=== PATIENT | male | born 1940 | race Caucasian/White ===

== ENCOUNTER 2018-05-19 23:08 | Inpatient (IN) | payer MEDICARE ==
[~2018-05-19] VITALS: Ht 175.3 cm; Wt 84.9 kg
[2018-05-19 23:00] VITALS: BP 122/69
[2018-05-20] MEDS: HYDROCODONE/ACETAMINOPHEN 5/325MG TABLET PO PRN (01:10)
[2018-05-20] MEDS ORDERED: WARF2.5T47 PO (01:42)
[2018-05-20] MEDS ORDERED: IPRA3AMP9 HHN (01:42)
[2018-05-20] MEDS ORDERED: HYDR-4001 PO (01:42)
[2018-05-20] MEDS ORDERED: ACET-2853 PO (01:42)
[2018-05-20] MEDS ORDERED: WARF5TAB76 PO (01:42)
[2018-05-20] MEDS ORDERED: METO-539 PO (01:42)
[2018-05-20] MEDS ORDERED: OMEP20TA2 PO (01:42)
[2018-05-20] MEDS ORDERED: NITR0.4T49 SL (01:42)
[2018-05-20] MEDS ORDERED: FURO40TA5 PO (01:42)
[2018-05-20] MEDS ORDERED: NICO-645 TP (01:42)
[2018-05-20] MEDS ORDERED: MAGNESIUM HYDROXIDE 400MG/5ML 30ML UDC PO PRN (02:00)
[2018-05-20] MEDS ORDERED: ONDANSETRON HCL 4MG/2ML VIAL IV PRN ×2 (02:00→10:30)
[2018-05-20] MEDS ORDERED: CLONIDINE 0.1MG TABLET PO PRN (02:00)
[2018-05-20] MEDS ORDERED: NITROGLYCERIN 0.4MG TABLET SL SL PRN (02:00)
[2018-05-20 02:03] VITALS: BP 122/69
[2018-05-20] MEDS ORDERED: CEFTRIAXONE 2 G in SODIUM CHLORIDE 0.9% 50 ML IV SCH (03:00)
[2018-05-20 06:37] LABS: INR 1.4; PROTHROMBIN TIME 14.9 sec (9.4-11.6)
[2018-05-20 06:48] LABS: BASOPHILS % 0.4 % (0.0-2.0); EOSINOPHILS % 0.8 % (0.0-5.0); HEMATOCRIT. 28.1 % (42.0-52.0); HEMOGLOBIN. 9.5 g/dL (14.0-18.0); LYMPHOCYTES % 10.6 % (20.0-50.0); MEAN CORPUSCULAR HEMOGLOBIN 32.3 pg (28.0-32.0); MEAN CORPUSCULAR VOLUME 95.7 fL (80.0-94.0); MONOCYTES % 10.2 % (2.0-8.0); PLATELET 148 x1000/uL (130-400); RED BLOOD CELL COUNT 2.94 mill/uL (4.7-6.1); RED CELL DISTRIBUTION WIDTH 18.1 % (11.6-14.6)
[2018-05-20] MEDS: PANTOPRAZOLE 40MG DR TABLET PO SCH (06:58)
[2018-05-20 07:05] VITALS: BP 123/72
[2018-05-20 08:09] LABS: CHLORIDE 100 mEq/L (98-107)
[2018-05-20] MEDS: NICOTINE 14MG PATCH TD SCH (09:04)
[2018-05-20] MEDS: METOPROLOL TARTRATE 50MG TABLET PO SCH ×2 (09:05→21:29)
[2018-05-20] MEDS: FUROSEMIDE 40MG TABLET PO SCH ×2 (09:05→21:29)
[2018-05-20] MEDS: IPRATROPIUM/ALBUTEROL 0.5-3(2.5)MG/3ML NEB HHN PRN (10:33)
[2018-05-20] MEDS: CEFTRIAXONE 2 G in DEXTROSE 5% WATER 50 ML IV SCH (12:05)
[2018-05-20] MEDS: ENOXAPARIN 40MG/0.4ML SYR SUBCUT SCH (12:05)
[2018-05-20] MEDS: DOCUSATE SODIUM 100MG CAPSULE PO SCH (17:34)
[2018-05-20 20:00] VITALS: BP 135/70
[2018-05-21] MEDS: PANTOPRAZOLE 40MG DR TABLET PO SCH (06:39)
[2018-05-21 08:00] VITALS: BP 151/56
[2018-05-21] MEDS: ENOXAPARIN 40MG/0.4ML SYR SUBCUT SCH (08:53)
[2018-05-21] MEDS: NICOTINE 14MG PATCH TD SCH (08:53)
[2018-05-21] MEDS: FUROSEMIDE 40MG TABLET PO SCH (08:54)
[2018-05-21] MEDS: METOPROLOL TARTRATE 50MG TABLET PO SCH (08:54)
[2018-05-21] MEDS: DOCUSATE SODIUM 100MG CAPSULE PO SCH ×2 (08:54→17:00)
[2018-05-21] MEDS: HYDROCODONE/ACETAMINOPHEN 5/325MG TABLET PO PRN (11:01)
[2018-05-21] MEDS: CEFTRIAXONE 2 G in DEXTROSE 5% WATER 50 ML IV SCH (12:32)
[2018-05-21] MEDS ORDERED: WARFARIN SODIUM 5MG TABLET PO SCH (18:00)
[2018-05-21 20:00] VITALS: BP 126/63
[2018-05-21] MEDS: METOPROLOL TARTRATE 100MG TABLET PO SCH (22:26)
[2018-05-22 06:27] LABS: HEMATOCRIT. 30.4 % (42.0-52.0); MEAN CORPUSCULAR HEMOGLOBIN 31.6 pg (28.0-32.0); MEAN CORPUSCULAR VOLUME 96.2 fL (80.0-94.0); MEAN PLATELET VOLUME 10.2 fl (7.4-10.4); PLATELET 176 x1000/uL (130-400); RED BLOOD CELL COUNT 3.16 mill/uL (4.7-6.1); RED CELL DISTRIBUTION WIDTH 18.1 % (11.6-14.6)
[2018-05-22 06:39] LABS: INR 1.1; PROTHROMBIN TIME 11.8 sec (9.4-11.6)
[2018-05-22 06:43] LABS: CHLORIDE 99 mEq/L (98-107)
[2018-05-22 06:47] LABS: LDL CHOLESTEROL 61 mg/dL (5-100)
[2018-05-22 06:48] LABS: PHOSPHORUS 2.7 mg/dL (2.5-4.9)
[2018-05-22 06:49] LABS: TOTAL IRON BINDING CAPACITY 195 ug/dL (250-450)
[2018-05-22 06:51] LABS: HDL CHOLESTEROL 40 mg/dL (40-59)
[2018-05-22 08:00] VITALS: BP 143/80
[2018-05-22] MEDS: DOCUSATE SODIUM 100MG CAPSULE PO SCH ×2 (09:00→16:51)
[2018-05-22] MEDS: METOPROLOL TARTRATE 100MG TABLET PO SCH ×2 (09:28→21:30)
[2018-05-22] MEDS: FAMOTIDINE 20MG TABLET PO SCH ×2 (09:28→17:23)
[2018-05-22] MEDS: FUROSEMIDE 40MG TABLET PO SCH (09:28)
[2018-05-22] MEDS: NICOTINE 14MG PATCH TD SCH (09:29)
[2018-05-22] MEDS: ENOXAPARIN 40MG/0.4ML SYR SUBCUT SCH (09:30)
[2018-05-22] MEDS: IPRATROPIUM/ALBUTEROL 0.5-3(2.5)MG/3ML NEB HHN PRN (10:04)
[2018-05-22 11:27] LABS: PLATELET ESTIMATE NORMAL
[2018-05-22] MEDS: CEFTRIAXONE 2 G in DEXTROSE 5% WATER 50 ML IV SCH (11:28)
[2018-05-22 11:58] LABS: PROSTRATE SPECIFIC AG TOTAL 1.03 ng/mL (0.0-4.0)
[2018-05-22 12:47] LABS: FOLIC ACID (FOLATE) SERUM 19.4 ng/mL (>5.38)
[2018-05-22] MEDS: LIDOCAINE 5% PATCH TOP SCH (13:00)
[2018-05-22] MEDS: HYDROCODONE/ACETAMINOPHEN 5/325MG TABLET PO PRN (17:24)
[2018-05-22] MEDS ORDERED: WARFARIN SODIUM 7.5MG TABLET PO SCH (18:00)
[2018-05-22 20:00] VITALS: BP 104/45
[2018-05-22] MEDS ORDERED: ZOLPIDEM TARTRATE 5MG TABLET PO SCH (21:00)
[2018-05-22] MEDS: ZOLPIDEM TARTRATE 5MG TABLET PO PRN (21:29)
[2018-05-23 06:58] LABS: INR 1.2; PROTHROMBIN TIME 12.7 sec (9.4-11.6)
[2018-05-23 08:00] VITALS: BP 139/73
[2018-05-23] MEDS: FUROSEMIDE 40MG TABLET PO SCH (08:34)
[2018-05-23] MEDS: FAMOTIDINE 20MG TABLET PO SCH ×2 (08:34→17:14)
[2018-05-23] MEDS: DOCUSATE SODIUM 100MG CAPSULE PO SCH ×2 (08:34→17:00)
[2018-05-23] MEDS: NICOTINE 14MG PATCH TD SCH (08:34)
[2018-05-23] MEDS: METOPROLOL TARTRATE 100MG TABLET PO SCH ×2 (08:35→21:00)
[2018-05-23] MEDS: ENOXAPARIN 40MG/0.4ML SYR SUBCUT SCH (08:35)
[2018-05-23] MEDS: LIDOCAINE 5% PATCH TOP SCH (08:36)
[2018-05-23] MEDS: IPRATROPIUM/ALBUTEROL 0.5-3(2.5)MG/3ML NEB HHN PRN (09:51)
[2018-05-23] MEDS: CEFTRIAXONE 2 G in DEXTROSE 5% WATER 50 ML IV SCH (11:27)
[2018-05-23 11:30] VITALS: BP 118/48
[2018-05-23] MEDS: HYDROCODONE/ACETAMINOPHEN 5/325MG TABLET PO PRN (11:37)
[2018-05-23] MEDS ORDERED: WARFARIN SODIUM 7.5MG TABLET PO SCH (18:00)
[2018-05-23 20:00] VITALS: BP 113/59
[2018-05-23] MEDS: ZOLPIDEM TARTRATE 5MG TABLET PO PRN (21:42)
[2018-05-24 07:05] LABS: INR 1.4; PROTHROMBIN TIME 14.9 sec (9.4-11.6)
[2018-05-24 07:43] VITALS: BP 115/64
[2018-05-24] MEDS: NICOTINE 14MG PATCH TD SCH (08:23)
[2018-05-24] MEDS: ENOXAPARIN 40MG/0.4ML SYR SUBCUT SCH (08:24)
[2018-05-24] MEDS: FUROSEMIDE 40MG TABLET PO SCH (08:24)
[2018-05-24] MEDS: METOPROLOL TARTRATE 100MG TABLET PO SCH ×2 (08:24→20:31)
[2018-05-24] MEDS: FAMOTIDINE 20MG TABLET PO SCH ×2 (08:24→17:23)
[2018-05-24] MEDS: HYDROCODONE/ACETAMINOPHEN 10/325MG TABLET PO PRN ×2 (08:26→15:01)
[2018-05-24] MEDS: LIDOCAINE 5% PATCH TOP SCH (08:27)
[2018-05-24] MEDS: DOCUSATE SODIUM 100MG CAPSULE PO SCH ×2 (09:00→17:00)
[2018-05-24] MEDS: CEFTRIAXONE 2 G in DEXTROSE 5% WATER 50 ML IV SCH (11:22)
[2018-05-24] MEDS ORDERED: HYDROCODONE/ACETAMINOPHEN 5/325MG TABLET PO PRN (12:30)
[2018-05-24] MEDS: IPRATROPIUM/ALBUTEROL 0.5-3(2.5)MG/3ML NEB HHN PRN (12:31)
[2018-05-24 14:50] VITALS: BP 159/76
[2018-05-24] MEDS ORDERED: TEMAZEPAM 15MG CAPSULE PO PRN (15:15)
[2018-05-24] MEDS ORDERED: WARFARIN SODIUM 10MG TABLET PO NR (18:00)
[2018-05-24 20:00] VITALS: BP 133/68
[2018-05-25] MEDS: IPRATROPIUM/ALBUTEROL 0.5-3(2.5)MG/3ML NEB HHN PRN (02:51)
[2018-05-25] MEDS ORDERED: HYDROCODONE/ACETAMINOPHEN 5/325MG TABLET PO PRN (05:45)
[2018-05-25] MEDS: HYDROCODONE/ACETAMINOPHEN 10/325MG TABLET PO PRN ×3 (06:49→22:28)
[2018-05-25 07:12] LABS: BASOPHILS % 0.7 % (0.0-2.0); EOSINOPHILS % 0.1 % (0.0-5.0); HEMATOCRIT. 24.9 % (42.0-52.0); HEMOGLOBIN. 8.5 g/dL (14.0-18.0); LYMPHOCYTES % 7.9 % (20.0-50.0); MEAN CORPUSCULAR HEMOGLOBIN 32.7 pg (28.0-32.0); MEAN CORPUSCULAR VOLUME 96.1 fL (80.0-94.0); MEAN PLATELET VOLUME 10.1 fl (7.4-10.4); MONOCYTES % 9.9 % (2.0-8.0); NEUTROPHILS % 81.4 % (40.0-76.0); PLATELET 160 x1000/uL (130-400); RED BLOOD CELL COUNT 2.59 mill/uL (4.7-6.1); RED CELL DISTRIBUTION WIDTH 18.1 % (11.6-14.6)
[2018-05-25 07:34] LABS: PROTHROMBIN TIME 20.6 sec (9.4-11.6)
[2018-05-25 07:41] LABS: CHLORIDE 99 mEq/L (98-107)
[2018-05-25] MEDS: FUROSEMIDE 40MG TABLET PO SCH (09:07)
[2018-05-25] MEDS: ENOXAPARIN 40MG/0.4ML SYR SUBCUT SCH (09:07)
[2018-05-25] MEDS: NICOTINE 14MG PATCH TD SCH (09:07)
[2018-05-25] MEDS: FAMOTIDINE 20MG TABLET PO SCH ×2 (09:07→16:44)
[2018-05-25] MEDS: DOCUSATE SODIUM 100MG CAPSULE PO SCH ×2 (09:07→16:44)
[2018-05-25] MEDS: LIDOCAINE 5% PATCH TOP SCH (09:08)
[2018-05-25] MEDS: METOPROLOL TARTRATE 100MG TABLET PO SCH ×2 (09:08→22:24)
[2018-05-25] MEDS: CEFTRIAXONE 2 G in DEXTROSE 5% WATER 50 ML IV SCH (12:41)
[2018-05-25] MEDS ORDERED: WARFARIN SODIUM 7.5MG TABLET PO NR (18:00)
[2018-05-25 20:00] VITALS: BP 127/49
[2018-05-26 08:00] VITALS: BP_SYST 102; BP_SYST 133; BP_DIAS 63
[2018-05-26 08:03] LABS: PROTHROMBIN TIME 31.4 sec (9.4-11.6)
[2018-05-26 08:20] LABS: CHLORIDE 100 mEq/L (98-107)
[2018-05-26 08:35] LABS: BASOPHILS % 0.7 % (0.0-2.0); EOSINOPHILS % 0.5 % (0.0-5.0); HEMATOCRIT. 26.3 % (42.0-52.0); HEMOGLOBIN. 8.7 g/dL (14.0-18.0); LYMPHOCYTES % 9.8 % (20.0-50.0); MEAN CORPUSCULAR HEMOGLOBIN 32.1 pg (28.0-32.0); MEAN CORPUSCULAR VOLUME 97.3 fL (80.0-94.0); MEAN PLATELET VOLUME 10.2 fl (7.4-10.4); MONOCYTES % 9.2 % (2.0-8.0); NEUTROPHILS % 79.8 % (40.0-76.0); PLATELET 169 x1000/uL (130-400); RED CELL DISTRIBUTION WIDTH 18.4 % (11.6-14.6)
[2018-05-26] MEDS: DOCUSATE SODIUM 100MG CAPSULE PO SCH ×2 (09:00→17:00)
[2018-05-26] MEDS: NICOTINE 14MG PATCH TD SCH (09:02)
[2018-05-26] MEDS: FAMOTIDINE 20MG TABLET PO SCH ×2 (09:03→17:27)
[2018-05-26] MEDS: FUROSEMIDE 40MG TABLET PO SCH (09:03)
[2018-05-26] MEDS: LIDOCAINE 5% PATCH TOP SCH (09:03)
[2018-05-26] MEDS: METOPROLOL TARTRATE 100MG TABLET PO SCH ×2 (09:04→21:29)
[2018-05-26] MEDS: CEFTRIAXONE 2 G in DEXTROSE 5% WATER 50 ML IV SCH (12:49)
[2018-05-26] MEDS ORDERED: TEMAZEPAM 15MG CAPSULE PO PRN (18:15)
[2018-05-26 20:00] VITALS: BP 114/52
[2018-05-27] MEDS: HYDROCODONE/ACETAMINOPHEN 10/325MG TABLET PO PRN (04:31)
[2018-05-27 07:37] LABS: INR 3.1
[2018-05-27 08:35] VITALS: BP 142/56
[2018-05-27] MEDS: NICOTINE 14MG PATCH TD SCH (08:51)
[2018-05-27] MEDS: FUROSEMIDE 40MG TABLET PO SCH (08:52)
[2018-05-27] MEDS: LIDOCAINE 5% PATCH TOP SCH (08:52)
[2018-05-27] MEDS: DOCUSATE SODIUM 100MG CAPSULE PO SCH ×2 (08:52→17:00)
[2018-05-27] MEDS: FAMOTIDINE 20MG TABLET PO SCH ×2 (08:53→17:48)
[2018-05-27] MEDS: METOPROLOL TARTRATE 100MG TABLET PO SCH ×2 (08:53→22:13)
[2018-05-27] MEDS: IPRATROPIUM/ALBUTEROL 0.5-3(2.5)MG/3ML NEB HHN PRN (09:20)
[2018-05-27 10:57] LABS: HEMATOCRIT 25.8 % (42.0-52.0); HEMOGLOBIN 8.5 g/dL (14.0-18.0); MEAN CORPUSCULAR HEMOGLOBIN 32.2 pg (28.0-32.0); PLATELET 173 x1000/uL (130-400); RED BLOOD CELL COUNT 2.63 mill/uL (4.7-6.1); RED CELL DISTRIBUTION WIDTH 18.5 % (11.6-14.6)
[2018-05-27] MEDS: CEFTRIAXONE 2 G in DEXTROSE 5% WATER 50 ML IV SCH (12:31)
[2018-05-27 20:00] VITALS: BP 121/57
[2018-05-28] MEDS: IPRATROPIUM/ALBUTEROL 0.5-3(2.5)MG/3ML NEB HHN PRN (01:12)
[2018-05-28 04:18] LABS: 25-HYDROXY VITAMIN D3 23 ng/mL (.)
[2018-05-28 06:24] LABS: HEMATOCRIT 26.3 % (42.0-52.0); HEMOGLOBIN 8.7 g/dL (14.0-18.0); MEAN CORPUSCULAR HEMOGLOBIN 32.1 pg (28.0-32.0); MEAN CORPUSCULAR VOLUME 96.7 fL (80.0-94.0); PLATELET 169 x1000/uL (130-400); RED BLOOD CELL COUNT 2.72 mill/uL (4.7-6.1); RED CELL DISTRIBUTION WIDTH 18.9 % (11.6-14.6)
[2018-05-28 07:00] VITALS: BP 126/78
[2018-05-28] MEDS: METOPROLOL TARTRATE 100MG TABLET PO SCH ×2 (08:12→21:55)
[2018-05-28] MEDS: FAMOTIDINE 20MG TABLET PO SCH ×2 (08:12→17:10)
[2018-05-28] MEDS: NICOTINE 14MG PATCH TD SCH (08:12)
[2018-05-28] MEDS: FUROSEMIDE 40MG TABLET PO SCH (08:13)
[2018-05-28] MEDS: LIDOCAINE 5% PATCH TOP SCH (08:16)
[2018-05-28] MEDS: HYDROCODONE/ACETAMINOPHEN 10/325MG TABLET PO PRN (08:16)
[2018-05-28] MEDS: DOCUSATE SODIUM 100MG CAPSULE PO SCH ×2 (08:16→17:00)
[2018-05-28] MEDS ORDERED: ERGOCALCIFEROL 50000UNITS CAPSULE PO SCH (12:00)
[2018-05-28 20:00] VITALS: BP 134/63
[2018-05-29] MEDS: IPRATROPIUM/ALBUTEROL 0.5-3(2.5)MG/3ML NEB HHN PRN ×2 (04:47→19:46)
[2018-05-29] MEDS: HYDROCODONE/ACETAMINOPHEN 10/325MG TABLET PO PRN (05:22)
[2018-05-29 07:10] LABS: INR 2.4; PROTHROMBIN TIME 25.3 sec (9.4-11.6)
[2018-05-29 08:08] VITALS: BP 137/73
[2018-05-29] MEDS: LIDOCAINE 5% PATCH TOP SCH (08:54)
[2018-05-29] MEDS: FUROSEMIDE 40MG TABLET PO SCH (08:55)
[2018-05-29] MEDS: FAMOTIDINE 20MG TABLET PO SCH ×2 (08:55→17:16)
[2018-05-29] MEDS: DOCUSATE SODIUM 100MG CAPSULE PO SCH ×3 (08:55→17:00)
[2018-05-29] MEDS: NICOTINE 14MG PATCH TD SCH (08:55)
[2018-05-29] MEDS: METOPROLOL TARTRATE 100MG TABLET PO SCH ×2 (08:56→21:00)
[2018-05-29 20:00] VITALS: BP 148/71
[2018-05-29] MEDS: MELATONIN 1 MG PO PRN (22:22)
[2018-05-30] MEDS: IPRATROPIUM/ALBUTEROL 0.5-3(2.5)MG/3ML NEB HHN PRN (01:36)
[2018-05-30 08:00] VITALS: BP 148/72
[2018-05-30] MEDS: DOCUSATE SODIUM 100MG CAPSULE PO SCH ×2 (08:34→17:00)
[2018-05-30] MEDS: METOPROLOL TARTRATE 100MG TABLET PO SCH ×2 (08:34→21:00)
[2018-05-30] MEDS: FUROSEMIDE 40MG TABLET PO SCH (08:34)
[2018-05-30] MEDS: FAMOTIDINE 20MG TABLET PO SCH ×2 (08:34→17:25)
[2018-05-30] MEDS: NICOTINE 14MG PATCH TD SCH (08:35)
[2018-05-30] MEDS: LIDOCAINE 5% PATCH TOP SCH (08:36)
[2018-05-30 13:46] LABS: HEMATOCRIT 26.2 % (42.0-52.0); HEMOGLOBIN 8.6 g/dL (14.0-18.0); MEAN CORPUSCULAR HEMOGLOBIN 32.3 pg (28.0-32.0); MEAN CORPUSCULAR VOLUME 98.4 fL (80.0-94.0); PLATELET 167 x1000/uL (130-400); RED BLOOD CELL COUNT 2.66 mill/uL (4.7-6.1); RED CELL DISTRIBUTION WIDTH 18.5 % (11.6-14.6)
[2018-05-30] MEDS: ACETAMINOPHEN 325MG TABLET PO PRN ×2 (17:26→23:30)
[2018-05-30] MEDS: MELATONIN 1 MG PO PRN (22:11)
[2018-05-31 06:49] LABS: INR 1.7; PROTHROMBIN TIME 17.7 sec (9.4-11.6)
[2018-05-31 07:00] LABS: CHLORIDE 102 mEq/L (98-107)
[2018-05-31 07:08] LABS: EOSINOPHILS % 0.4 % (0.0-5.0); HEMATOCRIT. 26.5 % (42.0-52.0); HEMOGLOBIN. 8.9 g/dL (14.0-18.0); LYMPHOCYTES % 11.6 % (20.0-50.0); MEAN CORPUSCULAR HEMOGLOBIN 32.4 pg (28.0-32.0); MEAN CORPUSCULAR VOLUME 96.9 fL (80.0-94.0); MEAN PLATELET VOLUME 10.2 fl (7.4-10.4); MONOCYTES % 8.1 % (2.0-8.0); NEUTROPHILS % 78.9 % (40.0-76.0); PLATELET 168 x1000/uL (130-400); RED BLOOD CELL COUNT 2.74 mill/uL (4.7-6.1); RED CELL DISTRIBUTION WIDTH 18.8 % (11.6-14.6)
[2018-05-31 08:00] VITALS: BP 151/92
[2018-05-31] MEDS: IPRATROPIUM/ALBUTEROL 0.5-3(2.5)MG/3ML NEB HHN PRN (08:51)
[2018-05-31] MEDS: NICOTINE 14MG PATCH TD SCH (08:58)
[2018-05-31] MEDS: FUROSEMIDE 40MG TABLET PO SCH (08:58)
[2018-05-31] MEDS: FAMOTIDINE 20MG TABLET PO SCH ×2 (08:58→17:59)
[2018-05-31] MEDS: METOPROLOL TARTRATE 100MG TABLET PO SCH ×2 (08:58→21:00)
[2018-05-31] MEDS: LIDOCAINE 5% PATCH TOP SCH (08:59)
[2018-05-31] MEDS: DOCUSATE SODIUM 100MG CAPSULE PO SCH ×2 (09:00→17:00)
[2018-05-31] MEDS ORDERED: PREDNISONE 20MG TABLET PO NR (15:00)
[2018-05-31] MEDS: HYDROCODONE/ACETAMINOPHEN 10/325MG TABLET PO PRN (15:11)
[2018-05-31] MEDS: FLUTICASONE/VILANTEROL 200-25 BLST.W.DEV ORI SCH (18:21)
[2018-05-31 20:00] VITALS: BP 131/93
[2018-05-31] MEDS ORDERED: MELATONIN 1 MG PO NR (20:00)
[2018-05-31] MEDS: IPRATROPIUM/ALBUTEROL 0.5-3(2.5)MG/3ML NEB HHN SCH (20:11)
[2018-05-31 22:00] VITALS: BP 112/70
[2018-06-01] MEDS: IPRATROPIUM/ALBUTEROL 0.5-3(2.5)MG/3ML NEB HHN SCH ×3 (01:45→21:26)
[2018-06-01 08:00] VITALS: BP 141/71
[2018-06-01] MEDS: DOCUSATE SODIUM 100MG CAPSULE PO SCH ×2 (09:00→17:00)
[2018-06-01] MEDS: NICOTINE 14MG PATCH TD SCH (09:23)
[2018-06-01] MEDS: FUROSEMIDE 40MG TABLET PO SCH (09:24)
[2018-06-01] MEDS: LIDOCAINE 5% PATCH TOP SCH (09:24)
[2018-06-01] MEDS: METOPROLOL TARTRATE 100MG TABLET PO SCH ×2 (09:24→20:49)
[2018-06-01] MEDS: FLUTICASONE/VILANTEROL 200-25 BLST.W.DEV ORI SCH ×2 (09:25→18:26)
[2018-06-01] MEDS: FAMOTIDINE 20MG TABLET PO SCH ×2 (09:25→18:26)
[2018-06-01 20:00] VITALS: BP 115/39
[2018-06-01] MEDS: SILDENAFIL CITRATE 20MG TABLET PO SCH (21:52)
[2018-06-01] MEDS: MELATONIN 1 MG PO PRN (22:44)
[2018-06-02] MEDS: IPRATROPIUM/ALBUTEROL 0.5-3(2.5)MG/3ML NEB HHN SCH ×4 (01:31→21:06)
[2018-06-02] MEDS: SILDENAFIL CITRATE 20MG TABLET PO SCH ×3 (05:43→22:01)
[2018-06-02] MEDS: FUROSEMIDE 40MG/4ML VIAL IVP SCH ×2 (05:44→17:18)
[2018-06-02 07:00] LABS: INR 1.3; PROTHROMBIN TIME 13.9 sec (9.4-11.6)
[2018-06-02 07:05] LABS: CHLORIDE 102 mEq/L (98-107)
[2018-06-02 07:09] LABS: BASOPHILS % 0.3 % (0.0-2.0); EOSINOPHILS % 0.2 % (0.0-5.0); HEMATOCRIT. 25.8 % (42.0-52.0); HEMOGLOBIN. 8.6 g/dL (14.0-18.0); LYMPHOCYTES % 15.6 % (20.0-50.0); MEAN CORPUSCULAR HEMOGLOBIN 32.3 pg (28.0-32.0); MEAN CORPUSCULAR VOLUME 97.2 fL (80.0-94.0); MONOCYTES % 8.3 % (2.0-8.0); NEUTROPHILS % 75.6 % (40.0-76.0); PLATELET 159 x1000/uL (130-400); RED BLOOD CELL COUNT 2.66 mill/uL (4.7-6.1); RED CELL DISTRIBUTION WIDTH 18.5 % (11.6-14.6)
[2018-06-02 08:00] VITALS: BP 123/54
[2018-06-02] MEDS: NICOTINE 14MG PATCH TD SCH (08:34)
[2018-06-02] MEDS: FAMOTIDINE 20MG TABLET PO SCH ×2 (08:34→17:18)
[2018-06-02] MEDS: METOPROLOL TARTRATE 100MG TABLET PO SCH ×2 (08:36→21:00)
[2018-06-02] MEDS: FLUTICASONE/VILANTEROL 200-25 BLST.W.DEV ORI SCH ×2 (08:37→17:18)
[2018-06-02] MEDS: DOCUSATE SODIUM 100MG CAPSULE PO SCH ×2 (08:37→17:00)
[2018-06-02] MEDS: LIDOCAINE 5% PATCH TOP SCH (08:38)
[2018-06-02] MEDS ORDERED: CLONIDINE 0.1MG TABLET PO PRN (10:30)
[2018-06-02 13:05] VITALS: BP 122/61
[2018-06-02] MEDS: HYDROCODONE/ACETAMINOPHEN 10/325MG TABLET PO PRN (15:19)
[2018-06-02 20:00] VITALS: BP 99/50
[2018-06-02] MEDS ORDERED: FUROSEMIDE 40MG/4ML VIAL IVP SCH (20:00)
[2018-06-02] MEDS: MELATONIN 1 MG PO PRN (22:02)
[2018-06-03] MEDS: IPRATROPIUM/ALBUTEROL 0.5-3(2.5)MG/3ML NEB HHN SCH ×4 (01:49→21:01)
[2018-06-03] MEDS: SILDENAFIL CITRATE 20MG TABLET PO SCH ×3 (06:31→22:05)
[2018-06-03] MEDS: FUROSEMIDE 40MG/4ML VIAL IVP SCH ×2 (06:31→17:08)
[2018-06-03 07:00] VITALS: BP 125/65
[2018-06-03] MEDS: NICOTINE 14MG PATCH TD SCH (08:22)
[2018-06-03] MEDS: FAMOTIDINE 20MG TABLET PO SCH ×2 (08:22→17:08)
[2018-06-03] MEDS: METOPROLOL TARTRATE 100MG TABLET PO SCH ×2 (08:23→21:03)
[2018-06-03] MEDS: FLUTICASONE/VILANTEROL 200-25 BLST.W.DEV ORI SCH ×2 (08:24→17:08)
[2018-06-03] MEDS: LIDOCAINE 5% PATCH TOP SCH (08:25)
[2018-06-03] MEDS: DOCUSATE SODIUM 100MG CAPSULE PO SCH ×2 (08:28→17:00)
[2018-06-03 10:45] VITALS: BP 102/50
[2018-06-03] MEDS: HYDROCODONE/ACETAMINOPHEN 10/325MG TABLET PO PRN (10:51)
[2018-06-03] MEDS ORDERED: WARFARIN SODIUM 7.5MG TABLET PO SCH (18:32)
[2018-06-03 20:00] VITALS: BP 128/65
[2018-06-03] MEDS: MELATONIN 1 MG PO PRN (22:00)
[2018-06-04] MEDS: FUROSEMIDE 40MG/4ML VIAL IVP SCH ×2 (06:26→17:47)
[2018-06-04] MEDS: SILDENAFIL CITRATE 20MG TABLET PO SCH ×3 (06:27→21:25)
[2018-06-04 07:26] LABS: INR 1.2; PROTHROMBIN TIME 12.1 sec (9.4-11.6)
[2018-06-04 07:27] LABS: HEMOGLOBIN 9.3 g/dL (14.0-18.0); MEAN CORPUSCULAR HEMOGLOBIN 32.2 pg (28.0-32.0); MEAN CORPUSCULAR VOLUME 97.4 fL (80.0-94.0); PLATELET 167 x1000/uL (130-400); RED BLOOD CELL COUNT 2.88 mill/uL (4.7-6.1); RED CELL DISTRIBUTION WIDTH 19.9 % (11.6-14.6)
[2018-06-04 08:00] VITALS: BP 127/67
[2018-06-04] MEDS: METOPROLOL TARTRATE 100MG TABLET PO SCH ×2 (08:39→21:25)
[2018-06-04] MEDS: FAMOTIDINE 20MG TABLET PO SCH ×2 (08:39→17:47)
[2018-06-04] MEDS: FLUTICASONE/VILANTEROL 200-25 BLST.W.DEV ORI SCH ×2 (08:40→17:47)
[2018-06-04] MEDS: NICOTINE 14MG PATCH TD SCH (08:40)
[2018-06-04] MEDS: DOCUSATE SODIUM 100MG CAPSULE PO SCH ×2 (08:40→17:00)
[2018-06-04] MEDS: LIDOCAINE 5% PATCH TOP SCH (08:41)
[2018-06-04] MEDS: IPRATROPIUM/ALBUTEROL 0.5-3(2.5)MG/3ML NEB HHN SCH ×3 (08:45→20:29)
[2018-06-04] MEDS ORDERED: WARFARIN SODIUM 7.5MG TABLET PO SCH (18:00)
[2018-06-04 20:00] VITALS: BP 101/57
[2018-06-04] MEDS: MELATONIN 1 MG PO PRN (21:21)
[2018-06-05] MEDS: ACETAMINOPHEN 325MG TABLET PO PRN (02:46)
[2018-06-05] MEDS: IPRATROPIUM/ALBUTEROL 0.5-3(2.5)MG/3ML NEB HHN SCH ×4 (02:57→20:30)
[2018-06-05] MEDS: FUROSEMIDE 40MG/4ML VIAL IVP SCH (05:55)
[2018-06-05] MEDS: SILDENAFIL CITRATE 20MG TABLET PO SCH ×3 (05:56→21:51)
[2018-06-05 07:21] LABS: INR 1.2; PROTHROMBIN TIME 12.7 sec (9.4-11.6)
[2018-06-05 08:00] VITALS: BP 104/52
[2018-06-05] MEDS: METOPROLOL TARTRATE 100MG TABLET PO SCH ×2 (09:00→21:00)
[2018-06-05] MEDS: DOCUSATE SODIUM 100MG CAPSULE PO SCH ×2 (09:00→17:00)
[2018-06-05] MEDS: NICOTINE 14MG PATCH TD SCH (09:02)
[2018-06-05] MEDS: FAMOTIDINE 20MG TABLET PO SCH ×2 (09:02→17:49)
[2018-06-05] MEDS: FLUTICASONE/VILANTEROL 200-25 BLST.W.DEV ORI SCH ×2 (09:02→17:53)
[2018-06-05] MEDS: LIDOCAINE 5% PATCH TOP SCH (09:03)
[2018-06-05 14:40] LABS: TOTAL IRON BINDING CAPACITY 250 ug/dL (250-450)
[2018-06-05] MEDS ORDERED: WARFARIN SODIUM 7.5MG TABLET PO SCH (18:00)
[2018-06-05 20:00] VITALS: BP 129/66
[2018-06-05] MEDS: MELATONIN 1 MG PO PRN (23:25)
[2018-06-06] MEDS: HYDROCODONE/ACETAMINOPHEN 10/325MG TABLET PO PRN (04:03)
[2018-06-06] MEDS: SILDENAFIL CITRATE 20MG TABLET PO SCH ×3 (06:05→21:28)
[2018-06-06 07:00] VITALS: BP 131/47
[2018-06-06] MEDS: DOCUSATE SODIUM 100MG CAPSULE PO SCH ×2 (09:00→17:00)
[2018-06-06] MEDS: METOPROLOL TARTRATE 100MG TABLET PO SCH ×2 (09:24→21:00)
[2018-06-06] MEDS: FAMOTIDINE 20MG TABLET PO SCH ×2 (09:24→17:19)
[2018-06-06] MEDS: NICOTINE 14MG PATCH TD SCH (09:25)
[2018-06-06] MEDS: FLUTICASONE/VILANTEROL 200-25 BLST.W.DEV ORI SCH ×2 (09:26→17:18)
[2018-06-06] MEDS: LIDOCAINE 5% PATCH TOP SCH (09:26)
[2018-06-06 09:41] LABS: INR 1.5; PROTHROMBIN TIME 15.4 sec (9.4-11.6)
[2018-06-06] MEDS: IPRATROPIUM/ALBUTEROL 0.5-3(2.5)MG/3ML NEB HHN SCH ×3 (09:46→20:20)
[2018-06-06 10:51] LABS: HEMATOCRIT 25.4 % (42.0-52.0); HEMOGLOBIN 8.5 g/dL (14.0-18.0); MEAN CORPUSCULAR HEMOGLOBIN 32.6 pg (28.0-32.0); PLATELET 148 x1000/uL (130-400); RED BLOOD CELL COUNT 2.62 mill/uL (4.7-6.1); RED CELL DISTRIBUTION WIDTH 20.3 % (11.6-14.6)
[2018-06-06 14:30] VITALS: BP 109/64
[2018-06-06] MEDS ORDERED: WARFARIN SODIUM 7.5MG TABLET PO SCH (18:00)
[2018-06-06 20:00] VITALS: BP 137/45
[2018-06-06 21:00] VITALS: BP 110/62
[2018-06-07] MEDS: IPRATROPIUM/ALBUTEROL 0.5-3(2.5)MG/3ML NEB HHN SCH ×2 (02:38→08:06)
[2018-06-07] MEDS: SILDENAFIL CITRATE 20MG TABLET PO SCH (05:49)
[2018-06-07 06:22] LABS: INR 1.8; PROTHROMBIN TIME 19.3 sec (9.4-11.6)
[2018-06-07 08:00] VITALS: BP 128/58
[2018-06-07] MEDS: FLUTICASONE/VILANTEROL 200-25 BLST.W.DEV ORI SCH (08:35)
[2018-06-07] MEDS: METOPROLOL TARTRATE 100MG TABLET PO SCH (08:36)
[2018-06-07] MEDS: FAMOTIDINE 20MG TABLET PO SCH (08:36)
[2018-06-07] MEDS: NICOTINE 14MG PATCH TD SCH (08:36)
[2018-06-07] MEDS: LIDOCAINE 5% PATCH TOP SCH (08:37)
[2018-06-07] MEDS: DOCUSATE SODIUM 100MG CAPSULE PO SCH (08:37)
[2018-06-07 09:50] VITALS: BP 116/45
[2018-06-07] MEDS: HYDROCODONE/ACETAMINOPHEN 10/325MG TABLET PO PRN (10:07)
[2018-06-07 10:21] VITALS: BP 116/45
[2018-06-07] MEDS ORDERED: WARFARIN SODIUM 7.5MG TABLET PO NR (12:45)
== END 2018-06-07 13:01 | DRG 535 ==
PROVIDERS: ADMIT Physical Medicine & Rehabilitation Spinal Cord Injury Medicine; ATTEND Internal Medicine Nephrology
DX: S32.402A Unspecified fracture of left acetabulum, initial encounter for closed fracture (principal); E43 Unspecified severe protein-calorie malnutrition; A41.51 Sepsis due to Escherichia coli [E. coli]; J96.00 Acute respiratory failure, unspecified whether with hypoxia or hypercapnia; S42.92XA Fracture of left shoulder girdle, part unspecified, initial encounter for closed fracture; N39.0 Urinary tract infection, site not specified; I13.0 Hypertensive heart and chronic kidney disease with heart failure and stage 1 through stage 4 chronic kidney disease, or unspecified chronic kidney disease; D68.9 Coagulation defect, unspecified; I50.42 Chronic combined systolic (congestive) and diastolic (congestive) heart failure; N17.9 Acute kidney failure, unspecified; J44.1 Chronic obstructive pulmonary disease with (acute) exacerbation; S42.202A Unspecified fracture of upper end of left humerus, initial encounter for closed fracture; I48.0 Paroxysmal atrial fibrillation; Z79.01 Long term (current) use of anticoagulants; J44.9 Chronic obstructive pulmonary disease, unspecified; I95.9 Hypotension, unspecified; N18.9 Chronic kidney disease, unspecified; M79.609 Pain in unspecified limb; B96.20 Unspecified Escherichia coli [E. coli] as the cause of diseases classified elsewhere; D63.8 Anemia in other chronic diseases classified elsewhere; I25.10 Atherosclerotic heart disease of native coronary artery without angina pectoris; M19.90 Unspecified osteoarthritis, unspecified site; G47.00 Insomnia, unspecified; F17.200 Nicotine dependence, unspecified, uncomplicated; W18.39XA Other fall on same level, initial encounter; W01.0XXA Fall on same level from slipping, tripping and stumbling without subsequent striking against object, initial encounter; R26.9 Unspecified abnormalities of gait and mobility; R53.81 Other malaise; E55.9 Vitamin D deficiency, unspecified; B35.1 Tinea unguium; I70.0 Atherosclerosis of aorta; F32.9 Major depressive disorder, single episode, unspecified; F41.9 Anxiety disorder, unspecified; M10.9 Gout, unspecified; M21.612 Bunion of left foot; M21.962 Unspecified acquired deformity of left lower leg; L60.3 Nail dystrophy; T45.515A Adverse effect of anticoagulants, initial encounter; I25.5 Ischemic cardiomyopathy; I27.22 Pulmonary hypertension due to left heart disease; I73.9 Peripheral vascular disease, unspecified; L21.9 Seborrheic dermatitis, unspecified; N40.0 Benign prostatic hyperplasia without lower urinary tract symptoms; Z68.27 Body mass index [BMI] 27.0-27.9, adult; Y93.89 Activity, other specified; Y92.89 Other specified places as the place of occurrence of the external cause; Y99.8 Other external cause status; Z79.899 Other long term (current) drug therapy
CPT/HCPCS: 36415; 71045; 73030; 73630; 80048; 80053; 80061; 82270; 82306; 82607; 82728; 82746; 83540; 83550; 83735; 83880; 84100; 84134; 84153; 84443; 84550; 84630; 85025; 85027; 85610; 87040; 93005; 93306; 93970; 94640; 97110; 97116; 97163; 97167; 97530; 97535; A4565; A6261; J0696; J1650; J1940; J7040; J7060; J7512; J7620; A5200; G0103